=== PATIENT | male | born 1980 | race Caucasian/White ===

== ENCOUNTER → 2018-04-07 16:12 | Outpatient (CLI) | payer OTHER, SELFPAY ==
--- NOTE | 2018-04-07 16:17 | RAD_ITS ---
STUDY: X-RAY - RIGHT ANKLE REASON FOR EXAM: Male, 38 years old. Pain TECHNIQUE: 3 view(s) of the ankle. COMPARISON: None. FINDINGS: Normal visualized distal tibia and fibula. Normal medial and lateral malleoli. Normal tibiotalar articulation and ankle mortise. Normal visualized talus and calcaneus. The visualized subtalar, talonavicular, calcaneocuboid and tarsal articulations are normal. The soft tissue structures are unremarkable. RAD/Ankle min 3 Views IMPRESSION: Normal x-ray examination of the ankle. Electronically Signed: Bhaskar Jiménez MD at 3:32 EST Tel , Service support ,
--- NOTE | 2018-04-07 16:17 | RAD_ITS ---
STUDY: X-RAY - LEFT ANKLE REASON FOR EXAM: Male, 38 years old. Pain TECHNIQUE: 3 view(s) of the ankle. COMPARISON: None. FINDINGS: Normal visualized distal tibia and fibula. Normal medial and lateral malleoli. Normal tibiotalar articulation and ankle mortise. Normal visualized talus and calcaneus. The visualized subtalar, talonavicular, calcaneocuboid and tarsal articulations are normal. The soft tissue structures are unremarkable. RAD/Ankle min 3 Views IMPRESSION: Normal x-ray examination of the ankle. Electronically Signed: Bhsakar Jiménez MD at 3:40 EST Tel , Service support ,
== END ==
PROVIDERS: Family Provider Family Medicine; PCP Family Medicine; Referring Provider Family Medicine; Visit Provider Family Medicine
DX: M76.60 Achilles tendinitis, unspecified leg (principal)
CPT/HCPCS: 73610

== ENCOUNTER → 2018-05-09 06:20 | Outpatient (CLI) | payer OTHER, SELFPAY ==
--- NOTE | 2018-05-09 06:28 | MRI_ITS ---
STUDY: MRI RIGHT ANKLE WITHOUT CONTRAST REASON FOR EXAM: Posterior ankle pain with small lump for 4 months, no specific injury. TECHNIQUE: Standardized fat and water weighted pulse sequences were obtained in all 3 orthogonal planes. COMPARISON: Radiographs 04/07/2018. FINDINGS: Normal subcutis adipose space. Normal posterior tibialis tendon. Normal flexor digitorum longus tendon. Normal flexor hallucis longus tendon. Normal peroneus longus and brevis tendons. Normal tibialis anterior tendon. Normal extensor hallucis longus tendon. Normal extensor digitorum longus tendons. There is fusiform thickening of the Achilles tendon in the watershed zone measuring 1.2 cm in AP dimension (inversion recovery sagittal images 15, 16) with a small partial tear of the posterior surface of the Achilles tendon medial to the midline in the watershed zone (T2 coronal image 4; inversion recovery axial series 7 image 11) measuring 0.4 cm in length. There is a low-lying soleus muscle (T1 sagittal image 16). There is no retrocalcaneal bursitis. Normal plantar fascia. Normal plantar calcaneal tubercles. Normal intrinsic muscles of the rearfoot. Normal distal tibiofibular syndesmotic ligamentous complex. Normal lateral ligamentous complex. Normal subtalar ligaments and sinus tarsi. There is a mild sprain of the deltoid ligament (T2 coronal images 17, 18). Normal plantar calcaneonavicular (spring) ligament. Normal tibiotalar articulation. Normal talar dome. Normal subtalar articulations. Normal talonavicular articulation. Normal calcaneocuboid articulation. Normal navicular-cuneiform articulations. There is mild cystic change/bone edema at the talar head/neck junction (inversion recovery sagittal images 11, 12). MRI/Lower Ext Joint Only (Routine) IMPRESSION: Achilles tendinosis with small partial tendon tear. Mild sprain of the deltoid ligament. Mild cystic change/bone edema at the talar head/neck junction. Electronically Signed: Carlos Ibanez MD at 7:38 EST Tel , Service support ,
== END ==
PROVIDERS: Family Provider Family Medicine; PCP Family Medicine; Referring Provider Family Medicine; Visit Provider Family Medicine
DX: M76.60 Achilles tendinitis, unspecified leg (principal)
CPT/HCPCS: 73721

== ENCOUNTER 2018-05-09 09:00 | Outpatient (RCR) | payer OTHER, SELFPAY ==
--- NOTE | 2018-04-11 09:58 | HP.PTEVAL_ITS ---
Patient's Visit Information MECHE ROSE is a 38 year old M referred to Physical Therapy by Ric Bunn MD with a diagnosis of Bilateral Achilles Bursitis. Date of Evaluation: 04/11/18 Physical Therapist: Angeli May DPT - Visit Plan Frequency: 2x /Week Duration: 4 Weeks Plan: Dry Needling to achilles with US and manual STM- hip/core strength/stabilization - Subjective Findings: Both side right>left achilles bursitis- started about 5 months- no change in activity just started bothering him. Has been running a lot in the past year- 20-25 miles a week- 3-7 miles 5x a week. Outside if the weather is nice enough but TM if not (vary incline). Exercise and preparing for [employer]. Pain is located in the achilles bilateral- tender to touch. worst: 4/10 Agg:running, standing, walking- anytime he pushes off. Eases: ice. Best: 0/10. Takes awhile to get back to 0/10 when hes running. Describes the pain as shooting and sharp with walking but also tight and sore. Weight lift and crossfit- tries to mix up his workouts. Current work out- free weights- machine weights- [employer] and [employer]. [employer] running shoes- 2 months old- switches out at 100 mile katt- second sole in [place]. Does not wear them when he runs they tend to move around and are uncomfortble. 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 Has had x-rays to rule out bone spurs- which were negative. PMHx: factor 5, left leg blood clots- 2017, knee surgery left patella tendon 2008 Meds: eloquist, prednisone. Sleep: not disturbed. - Objective Posture: Fh, RS- can correct with verbal cues but does not maintain. Gait: slightly antalgic- decreased heel/toe bilaterally with an awkward miladys. HR/TR: able but is diminished by 50% each direction. SLS: 30 sec with increased muscle activation. Observation: mild pes planus. ROM: WFL in all planes. Palpation: tender along achilles bilaterally. Strength: left LE: ankle: 5/5, Knee:5/5, Hip: 4/5 throughout Right: ankle:5/5, Knee: 5/5, Hip: 4+/5 Core: fair. Flex: Gastroc: moderate Soleus: mild Hamstring: moderate - Goals Goal 1:: Patient will be I with HEP and progression Goal Time Frame: 4-6 Weeks Goal 2:: Patient will ambulate >300 feet with 0/10 pain Goal Time Frame: 4-6 Weeks Goal 3:: Patient will maintain proper posture t/o tx session to demo increased core s/s. Goal Time Frame: 4-6 Weeks Goal 4:: Patient will demo 5/5 in le Goal Time Frame: 4-6 Weeks - Rehabilitation Potential Physical Therapy Diagnosis: Patient presents with hypomobility- he has decreased strength, flexibility and muscular endurance leading to poor posture and increased pain with ADL's. - Anticipated Interventions Patient/Client Instruction: Educate patient on: Benefits of Fitness Program Therapeutic Exercise to Include: Strength training, Balance training, Agility training, Body mechanics, Postural training, Flexibilty training, Dynamic Lumbar Stabilization For the Purpose of:: To improve muscle performance and motor function Manual Therapy Techniques to Include: Functional dry needling For the Purpose of:: To improve nutrient delivery to tissue TENS: Yes Cryotherapy (ice pack, ice massage): Yes Thermo therapy (hot pack): Yes Ultrasound (thermal/non thermal): Yes For the Purpose of:: To decrease pain Thank you for the opportunity to evaluate your patient. For Medicare and Medicare HMO plans, please review the plan of care and approve it. It will need to be FAXED BACK to us at [phone] for Medicare purposes. For Medicare only, by signing this I certify the plan of care. Please let me know if there are questions or concerns regarding this plan of care. Physician Signature: Date:
--- NOTE | 2018-07-03 10:58 | HP.PTDCNRP_ITS ---
HP - Discharge Summary (1) - Patient Information MECHE ROSE was seen in my office for initial evaluation on 04/11/18. The following Plan of Care was established for this patient: Initial Frequency: 2x /Week Initial Duration: 4 Weeks - Anticipated Interventions Patient/Client Instruction: Educate patient on: Benefits of Fitness Program Therapeutic Exercise to Include: Strength training, Balance training, Agility training, Body mechanics, Postural training, Flexibilty training, Dynamic Lumbar Stabilization For the Purpose of:: To improve muscle performance and motor function Manual Therapy Techniques to Include: Functional dry needling For the Purpose of:: To improve nutrient delivery to tissue TENS: Yes Cryotherapy (ice pack, ice massage): Yes Thermo therapy (hot pack): Yes Ultrasound (thermal/non thermal): Yes For the Purpose of:: To decrease pain This patient was last seen in our office . Pertinent comments regarding their Physical therapy will appear below: Patient had MRI which showed a tear in his achilles- is now working with [employer]- will call if needs to reschedule PT. Appropriate to d/c at this time. At this point I will be discontinuing this patient from physical therapy. I would be happy to see this patient again in the future if found appropriate by the physician. Thank you! Angeli May DPT
== END 2018-05-09 19:00 | disposition home or self-care (01) ==
LOC: PT 09:00
PROVIDERS: Family Provider Family Medicine; PCP Family Medicine; Referring Provider Family Medicine; Visit Provider Family Medicine
DX: M76.62 Achilles tendinitis, left leg (principal); M76.61 Achilles tendinitis, right leg
CPT/HCPCS: 97035; 97110; 97140; 97161

== ENCOUNTER 2018-08-27 08:00 | Outpatient (RCR) | payer OTHER, SELFPAY ==
--- NOTE | 2018-07-11 11:15 | HP.PTEVAL ---
Patient's Visit Information MECHE ROSE is a 38 year old M referred to Physical Therapy by Elsy Oleary DPM with a diagnosis of Achilles Tendonitis with partial tear. Date of Evaluation: 07/11/18 Physical Therapist: Angeli May DPT - Visit Plan Frequency: 3x /Week Duration: 6 Weeks Plan: Dry Needling then core s/s and progression of walk, jog, run, jump - Subjective Findings: Has been in a boot and is just now to be transitioning out of the boot- has not worn it since last week- wears heel lifts and braces. Does stretching and exercises for the ankles but has not tried anything else. It is wool hat forming machine tender to deep pressure it bothers him. So he wants to come back for dry needling. EPAT- 4 treatments with a 5th next week. No pain with walking for about 3 weeks. Progression of walk, jog, run, jump without pain. PMHx/Meds: no changes since last visit. Work: currently on light duty- Plans to go out to [employer] in November- will stay here until at least October. - Objective Posture: Fh, RS- can correct with verbal cues but does not maintain. Gait: slightly antalgic- decreased heel/toe bilaterally with ankle braces. HR/TR: able but is diminished by 25% each direction. SLS: 30 sec with increased muscle activation. Observation: mild pes planus. ROM: WFL in all planes. Palpation: tender along achilles bilaterally. Strength: left LE: ankle: 5/5, Knee:5/5, Hip: 4/5 throughout Right: ankle:5/5, Knee: 5/5, Hip: 4+/5 Core: fair. Flex: Gastroc: moderate Soleus: mild Hamstring: moderate - Goals Goal 1:: Patient will be I with HEP and progression Goal Time Frame: 4-6 Weeks Goal 2:: Patient will return to all normal activities with 0/10 pain Goal Time Frame: 4-6 Weeks Goal 3:: Patient will run with no deviation Goal Time Frame: 4-6 Weeks Goal 4:: Patient will maintain proper posture t/o tx session to demo increased core s/s Goal Time Frame: 4-6 Weeks - Rehabilitation Potential Physical Therapy Diagnosis: Patient presents with hypomobility- he has decreased strength, flexibility and muscular endurance leading to poor posture and increased pain with ADL's. Rehabilitation Potential: Good - Anticipated Interventions Patient/Client Instruction: Educate patient on: Benefits of Fitness Program Therapeutic Exercise to Include: Strength training, Endurance training, Coordination, Agility training, Body mechanics, Postural training, Flexibilty training, Gait and locomotor training, Passive ROM, Active ROM, Dynamic Lumbar Stabilization For the Purpose of:: To improve muscle performance and motor function Manual Therapy Techniques to Include: Functional dry needling, Soft tissue mobilization TENS: Yes Cryotherapy (ice pack, ice massage): Yes Thermo therapy (hot pack): Yes Ultrasound (thermal/non thermal): Yes Thank you for the opportunity to evaluate your patient. For Medicare and Medicare HMO plans, please review the plan of care and approve it. It will need to be FAXED BACK to us at [phone] for Medicare purposes. For Medicare only, by signing this I certify the plan of care. Please let me know if there are questions or concerns regarding this plan of care. Physician Signature: Date:
--- NOTE | 2018-08-11 07:23 | HP.PTREVAL ---
Elsy Oleary DPM, It has been my pleasure to treat MECHE ROSE over the last 10 visits for Achilles Tendonitis with partial tear. Please see the progress note below for an update on the physical therapy plan of care! Subjective: Doing well. Feeling much better lately. Excited to get back to work! Leaving for [employer] in November. Objective/Function: Great tolerance to agility and plyometric exercises today. Kept volume pretty low with jumps. Fatigue noted but pain free. Plan Plan: Dry Needling then core s/s and progression of walk, jog, run, jump Goals Goal 1:: Patient will be I with HEP and progression Goal Time Frame: 4-6 Weeks Goal Progress: Goal Met Goal 2:: Patient will return to all normal activities with 0/10 pain Goal Time Frame: 4-6 Weeks Goal Progress: Progressing Goal 3:: Patient will run with no deviation Goal Time Frame: 4-6 Weeks Goal Progress: Progressing Goal 4:: Patient will maintain proper posture t/o tx session to demo increased core s/s Goal Time Frame: 4-6 Weeks Goal Progress: Goal Met Anticipated Interventions Patient/Client Instruction: Educate patient on: Benefits of Fitness Program Therapeutic Exercise to Include: Strength training, Endurance training, Coordination, Agility training, Body mechanics, Postural training, Flexibilty training, Gait and locomotor training, Passive ROM, Active ROM, Dynamic Lumbar Stabilization For the Purpose of:: To improve muscle performance and motor function Manual Therapy Techniques to Include: Functional dry needling, Soft tissue mobilization TENS: Yes Cryotherapy (ice pack, ice massage): Yes Thermo therapy (hot pack): Yes Ultrasound (thermal/non thermal): Yes Please do not hesitate to contact me at [phone] by phone or if you have questions or concerns regarding this new plan of care! Sincerely, Yony Mccormick DPT
--- NOTE | 2018-12-12 08:09 | HP.PT.NRP ---
HP - Discharge Summary (1) - Patient Information MECHE ROSE was seen in my office for initial evaluation on 07/11/18. The following Plan of Care was established for this patient: Initial Frequency: 3x /Week Initial Duration: 6 Weeks - Anticipated Interventions Patient/Client Instruction: Educate patient on: Benefits of Fitness Program Therapeutic Exercise to Include: Strength training, Endurance training, Coordination, Agility training, Body mechanics, Postural training, Flexibilty training, Gait and locomotor training, Passive ROM, Active ROM, Dynamic Lumbar Stabilization For the Purpose of:: To improve muscle performance and motor function Manual Therapy Techniques to Include: Functional dry needling, Soft tissue mobilization TENS: Yes Cryotherapy (ice pack, ice massage): Yes Thermo therapy (hot pack): Yes Ultrasound (thermal/non thermal): Yes This patient was last seen in our office . Pertinent comments regarding their Physical therapy will appear below: Patient moved to [place]- appropriate for dc At this point I will be discontinuing this patient from physical therapy. I would be happy to see this patient again in the future if found appropriate by the physician. Thank you! Angeli May DPT
== END 2018-08-27 19:00 | disposition home or self-care (01) ==
LOC: PT 08:00
PROVIDERS: Family Provider Family Medicine; PCP Family Medicine; Referring Provider Podiatrist; Visit Provider Podiatrist
DX: M76.61 Achilles tendinitis, right leg (principal); S86.011D Strain of right Achilles tendon, subsequent encounter; M76.62 Achilles tendinitis, left leg
CPT/HCPCS: 97035; 97110; 97161; 97530